=== PATIENT | female | born 1955 | race Caucasian/White ===

== ENCOUNTER 2022-10-12 08:10 | Outpatient (CLI) | payer MEDICARE, SELFPAY | END 2022-10-12 08:11 | disposition home or self-care (01) | LOC: NFLDREF 10-16 09:53 | PROVIDERS: PCP Internal Medicine; Referring Provider Internal Medicine; Visit Provider Internal Medicine | DX: E78.5 Hyperlipidemia, unspecified (principal); M85.80 Other specified disorders of bone density and structure, unspecified site | CPT/HCPCS: 80061; 82306 ==

== ENCOUNTER 2022-12-07 14:46 | Outpatient (CLI) | payer MEDICARE, SELFPAY ==
--- NOTE | 2022-12-07 15:00 | CRLHL7_ITS ---
For Patients: As a result of the Century Cures Act, medical imaging exams and procedure reports are released immediately into your electronic medical record. You may view this report before your referring provider. If you have questions, please contact your health care provider. BILATERAL SCREENING MAMMOGRAM WITH COMPUTER-AIDED DETECTION AND TOMOSYNTHESIS TECHNIQUE: CC and MLO views were obtained. These mammographic images have been obtained using full-field digital technique. These mammographic images were interpreted with the benefit of computer-aided detection. Breast tomosynthesis was used in this interpretation. COMPARISON FILM: 11/17/21, 03/19/20, 11/11/18. FINDINGS: There are scattered areas of fibroglandular density. IMPRESSION: There is no radiographic evidence for malignancy. ASSESSMENT: BI-RADS Category 1: Negative RECOMMENDATION: Routine screening mammogram in 1 year. A lay language report of this examination will be provided to the patient. DENTON TERESA M.D. Diagnostic Radiologist [email or web address] Transcribed: 3:[address]/Dictated by: Denton Teresa MD @ 12/08/2022 11:37:00 AM (Electronically Signed)
== END 2022-12-07 14:47 | disposition home or self-care (01) ==
LOC: MAMMO 14:46
PROVIDERS: PCP Internal Medicine; Visit Provider Internal Medicine
DX: Z12.31 Encounter for screening mammogram for malignant neoplasm of breast (principal)
CPT/HCPCS: 77063; 77067

== ENCOUNTER 2023-06-22 13:19 | Outpatient (CLI) | payer MEDICARE, SELFPAY ==
--- OUTSIDE RECORDS SUMMARY | 2023-06-25 08:18 | XMS_ITS | Patient Health Record ---
Author Name Unknown Organization [facility] Address [address] [place], [place] [id number] Care Team Providers Care Gravity Prospecting Supervisor Name Role Phone Katerina Camacho Primary Care Provider ALLERGIES Allergen (clinical drug ingredient) Drug/Non Drug Allergy documented on EMR Reaction Allergy Type Onset Date Status Penicillin G Benzathine Unknown Drug Allergy Active sulfacetamide Sulfacetamide Sodium Unknown Drug Allergy Active REASON FOR REFERRAL No Information MEDICATIONS Medication SIG (Take, Route, Frequency, Duration) Notes Start Date End Date Status Calcium Active Vitamin D 4000 iu Active Multivitamin Active Calcium & Magnesium Carbonates Active Aspirin 81mg Active SOCIAL HISTORY Tobacco Use: Social History Observation Description Date Details (start date - stop date) Never Smoker NA - NA Sex Assigned At : Social History Observation Description Sex Assigned At Unknown Tobacco Use/Smoking Question Answer Notes Are you a nonsmoker Alcohol Screen (Audit-C) Question Answer Notes Did you have a drink contain ing alcohol in the past year? Yes How often did you have a dri nk containing alcohol in the past year? 4 or more times a week (4 points) Points 4 Interpretation Positive Sexual History Question Answer Notes Have you ever had a Sexually transmitted disease ? No PLAN OF TREATMENT No Information Insurance Providers Payer Name Payer Address Payer Phone Subscriber Number Group Number Insured Name Patient Relationship to Insured Coverage Start Date Coverage End Date [facility] Medicare 2021 (Ins. Bill) [address] [place], [place] [id number] Self - patient is the insured Medicare (Ins. Bill) [address] [place], [place] [id number] JANY KALE Self - patient is the insured MEDICAL (GENERAL) HISTORY Medical History History ICD Code Endometrosis Chicken Pox High Cholestrol Arthritis Surgical History Surgery Date(Month/Year) Bunionectomy 2012 Laparoscopy for Endometriosis 1988
== END 2023-06-22 13:20 | disposition home or self-care (01) ==
LOC: NFLDREF 06-25 08:16
PROVIDERS: PCP Internal Medicine; Referring Provider Internal Medicine; Visit Provider Physician Assistant
DX: R30.0 Dysuria (principal); N39.0 Urinary tract infection, site not specified
CPT/HCPCS: 87086

== ENCOUNTER 2023-10-13 08:26 | Outpatient (CLI) | payer MEDICARE, SELFPAY | END 2023-10-13 08:27 | disposition home or self-care (01) | LOC: NFLDREF 10-26 20:54 | PROVIDERS: PCP Internal Medicine; Referring Provider Internal Medicine; Visit Provider Internal Medicine | DX: M81.0 Age-related osteoporosis without current pathological fracture (principal); E78.5 Hyperlipidemia, unspecified | CPT/HCPCS: 80061; 82306 ==

== ENCOUNTER 2023-11-18 13:50 | Outpatient (CLI) | payer MEDICARE, SELFPAY ==
--- OUTSIDE RECORDS SUMMARY | 2023-11-18 13:52 | XMS_ITS | Clinical Summary ---
Author Name Unknown Organization [facility] Address [place], [place] [address] Care Team Providers Care Infectious Diseases Physician Name Role Phone Pcp, No Primary Care Provider Unavailabl e Allergies Active Allergy Reactions Criticality Noted Date Comments Penicillins Rash Low 05/28/2020 Sulfa (Sulfonamide Antibiotics) Rash Low 05/10 Medications Medication Sig Dispensed Refills Start Date End Date Status calcium carbonate (CALTRATE) 600 mg calcium (1,500 mg) tablet Take 1 Tablet (600 mg) by mouth 2 times daily with meals. 180 Tablet 3 11/04/2020 Active cholecalciferol (Vitamin D-3) 2,000 unit capsule Take 1 Capsule (2,000 units) by mouth once daily. 0 11/04/2020 Active multivitamin (MVI) tablet Take by mouth. Active simvastatin (ZOCOR) 20 mg tablet Take 20 mg by mouth once daily. 12/18/2021 Active aspirin (ECOTRIN) 81 mg enteric coated tablet Take 81 mg by mouth once daily. Active Active Problems Problem Noted Date Diagnosed Date Osteopenia of multiple sites 11/04/2020 Elevated BP without diagnosis of hypertension Immunizations Name Administration Dates Next Due COVID-19 vaccine (Innovacene 30mcg/0.3mL) P F, MDV 10/15/2020 Influenza Virus, Unspecified 06/16/2017,05/18/20 16 Influenza, High-dose Quadrivalent Inactivated ,09/25/2021 Influenza, IIV4 05/28/2020,06/15/2019 Influenza, Injectable, Mdck, Quadrivalent, W/preservative 06/16/2017 Influenza,CCIIV4 PRESERV FREE 05/22/2018 Pneumococcal Poly,23-Valent (Pneumovax) 05/28/20 20 Pneumococcal conj 13-Valent (Prevnar 13) 016 Td (Age >=7 Years) 09/25/2021,08/16/2006 Tdap 08/15/2012 Zoster (Shingrix-RZV, recombinant) 01/21/2021, Zoster (Zostavax-ZVL, live) 09/12/2014 Family History Medical History Relation Name Comments Rheum arthritis Father Diabetes Maternal Grandfather Heart attack Maternal Grandfather Cancer-breast Mother precancerous n odule Diabetes Mother Diverticulitis Mother Hypertension Mother Cervical cancer Sister Relation Name Status Comments Father Maternal Grandfather Mother Sister Social History Tobacco Use Types Packs/Day Years Used Date Smoking Tobacco: Never Smokeless Tobacco: Never Tobacco Cessation:Counseling Given: Yes Alcohol Use Standard Drinks/Week Comments Yes 0 (1 standard drink = 0.6 oz pur e alcohol) PHQ-2 Answer Date Recorded PHQ-2 TOTAL SCORE 0 11/04/2020 Social Connections Answer Date Recorded Frequency of Communication with Friends and Fami ly Not on file 08/11/2023 Financial Resource Strain Answer Date R ecorded Difficulty of Paying Living Expenses 3 01/20/2022 Difficulty of Paying Living Expenses Not on file 01/20/2022 Food Insecurity Answer Date Recorded Worried About Running Out of Food in the Last Ye ar 1 01/20/2022 Transportation Needs Answer Date Record ed Lack of Transportation (Medical) 1 01/20/2022 Housing Stability Answer Date Recorded Unable to Pay for Housing in the Last Year 1 01/20/2022 Sex and Gender Information Value Date Recorded Sex Assigned at Not on file Gender Identity Not on file Sexual Orientation Not on file Obstetrics History Last Filed Vital Signs Vital Sign Reading Time Taken Comments Blood Pressure 138/81 01/20/2022 12:24 PM CDT Pulse 77 01/20/2022 12:24 PM CDT Temperature 37.2 ??C (98.9 ??F) 01/20/2022 1 2:24 PM CDT Respiratory Rate 16 01/20/2022 12:2 4 PM CDT Oxygen Saturation 97% 01/20/2022 12: 24 PM CDT Inhaled Oxygen Concentration - - Weight 61.6 kg (135 lb 11.2 oz) 022 12:24 PM CDT Height 159.5 cm (5' 2.8) 11/04/2020 9:49 AM CDT Body Mass Index 24.2 11/04/2020 9:49 AM CDT Plan of Treatment Health Maintenance Due Date Last Done Comments Hepatitis C screening for ag e 18-79 12/01/1971 Lipids for age 45-75 1998 Mammogram for age 45-75 03/18/2021 03/18/2020 BMI (ht and wt on same day) for age 18+ 11/04/2021 11/04/2020 Depression screening for age 12+ 11/04/2021 11/05/19 21 Medicare Wellness for age 65+ 11/05/2021 11/04/2020 COVID-19 vaccine series ( season) 2023 08/18/2021, 11/05/2020, 10/15/2020 Influenza for age 65+ 04/09/2024 06/16/2022 , 09/25/2021, 05/28/2020, Additional history exists Colonoscopy through age 75 02/12/203102/12, 02/12/2021, 02/12/2021 Tetanus booster 09/25/2031 09/25/2021, 02/2013, 08/16/2006 Tdap Completed 08/15/2012 DEXA/DXA scan for age 65+ Completed 03/19/2020 Pneumococcal series for age 65+ Completed , 04/22/2016 Zoster (shingles) series for age 50+ Completed 01/21/2021, 10/01/2020, 09/12/2014 Procedures Procedure Name Priority Date/Time Associated Diagnosis Comments COLONOSCOPY SCREENING Routine 02/12/2021 9:18 AM CDT Screening for colon cancer SCAN-BONE DENSITOMETRY DEXA 03/19/2020 12:00 AM CDT SCAN-MAMMOGRAPHY REPORT 03/18/2020 12:00 AM CDT from Last 3 Months or Most Recently Relevant to Health Maintenance Results * COLONOSCOPY (02/12/2021 9:10 AM CDT) 02/12/2021 9:10 AM CDT Narrative Transcriptions Tuan Martinez MD - 02/12/2021 10:24 AM CDT Patient Name: Jeannette Loyd Procedure Date: 02/12/2021 Gender: Female Date of : 1955 Admit Type: Outpatient Procedure: Colonoscopy Proceduralist: Tuan Martinez MD , Lisseth Balderas (Nurse) Referring MD: Paulette August Indications/Pre-Op Diagnosis: Screening for colorectal malignant neoplasm, Last colonoscopy: August 2010 Medications: Fentanyl 100 micrograms IV, Midazolam 4 mgIV, The level of sedation administered wasmoderate Procedure Description: The patient had risks, benefits and alternatives explained to andgave informed consent. The patient had a stable cardiopulmonary status and judged an adequate candidate for conscious sedation. The PCF-Q290AL [id number] was passed through the anus and advanced tothe cecum, identified by appendiceal orifice and ileocecal valve. The colonoscopy was performed without difficulty. The patient toleratedthe procedure well. The quality of the bowel preparation was good. The ileocecal valve, appendiceal orifice, and rectum were photographed. Complications: No immediate complications. Estimated Blood Loss & Specimen: Estimated blood loss: none. Specimen collected - Yes and sent to Laboratory Findings: The perianal and digital rectal examinations were normal. Multiple small and large-mouthed diverticula were found in thesigmoid colon and descending colon. There was narrowing of the colon in association with the diverticular opening. Scattered small and large-mouthed diverticula were found in the ascending colon. The exam was otherwise without abnormality on direct and retroflexion views. Impressions/Post-Op Diagnosis: - Moderate diverticulosis in the sigmoid colon and in the descending colon. There was narrowing of the colon in association with the diverticular opening. - Diverticulosis in the ascending colon. - The examination was otherwise normal on direct and retroflexionviews. - No specimens collected. Recommendation: - Patient has a contact number available for emergencies. The signsand symptoms of potential delayed complications were discussed with the patient. Return to normal activities tomorrow. Written discharge instructions were provided to the patient. - Resume previous diet. - Continue present medications. - Repeat colonoscopy in 10 years for screening purposes. Moderate Sedation: Moderate (conscious) sedation was administered by the endoscopy nurse and supervised by the endoscopist. The following parameters were monitored: oxygen saturation, heart rate, respiratory rate, blood pressure, adequacy of pulmonary ventilation and reponse to care. Please refer to the patient's medical record flowsheets and nursing notes for moderate sedation details. Total physician intraservice time was 20 minutes. Tuan Martinez MD 02/12/2021 10:24:44 AM This report has been signed electronically. Note Initiated On: 02/12/2021 9:10 AM Procedure Code(s): --- Professional --- 23299, Colonoscopy, flexible; diagnostic, including collection of specimen(s) bybrushing or washing, when performed (separateprocedure) Diagnosis Code(s): --- Professional --- Z12.11, Encounter for screening formalignant neoplasm of colon K57.30, Diverticulosis of large intestine without perforation or abscess withoutbleeding CPT copyright 2020 [employer]. All rights reserved. The codes documented in this report are preliminary and upon broker assistant reviewmay be revised to meet current compliance requirements. Scope In: 10:02:11 AM Scope Withdrawal Time 0 hours 7 minutes 45 seconds Scope Out: 10:19:58 AM Tuan Martinez MD PROCEDURE ORD * SCAN-BONE DENSITOMETRY DEXA (03/19/2020 12:00 AM CDT) Anatomical Region Laterality Modality Other Scanner OTHER * SCAN-MAMMOGRAPHY REPORT (03/18/2020 12:00 AM CDT) Anatomical Region Laterality Modality Other Scanner OTHER from Last 3 Months or Most Recently Relevant to Health Maintenance Care Teams Infectious Diseases Physician Relationship Specialty Start Date End Date Pcp, No . PCP - General 02/16/23
== END 2023-11-18 13:51 | disposition home or self-care (01) ==
PROVIDERS: PCP Internal Medicine; Visit Provider Nurse Practitioner Family
DX: R35.0 Frequency of micturition (principal); R53.83 Other fatigue
CPT/HCPCS: 80053; 83735; 84443; 87086

== ENCOUNTER 2023-12-22 08:54 | Outpatient (CLI) | payer MEDICARE, SELFPAY ==
--- OUTSIDE RECORDS SUMMARY | 2023-12-22 08:56 | XMS_ITS | Clinical Summary ---
Author Name Unknown Organization [facility] Address [place], [place] [address] Care Team Providers Care Window Shade Cloth Sewer Name Role Phone Pcp, No Primary Care [...] Name Administration Dates Next Due COVID-19 vaccine (BlueTalon 30mcg/0.3mL) P F, MDV 10/15/2020 Influenza Virus, [...] Admit Type: Outpatient Procedure: Colonoscopy Proceduralist: Tuan aMrtinez MD , Lisseth Balderas (Nurse) Referring MD: [...] adequate candidate for conscious sedation. The PCF-Q290AL [id number] was passed through the anus and advanced [...] 9:10 AM Procedure Code(s): --- Professional --- 93366, Colonoscopy, flexible; diagnostic, including collection of specimen(s) bybrushing or washing, when performed (separateprocedure) Diagnosis Code(s): --- Professional --- Z12.11, Encounter for screening formalignant neoplasm of colon K57.30, Diverticulosis of large intestine without perforation or abscess withoutbleeding CPT copyright 2020 [employer]. All rights reserved. The codes documented in this report are preliminary and upon security operations specialist reviewmay be revised to meet current compliance [...] Recently Relevant to Health Maintenance Care Teams Window Shade Cloth Sewer Relationship Specialty Start Date End Date Pcp, No . PCP - General 02/16/23
--- NOTE | 2023-12-22 09:15 | MM_ITS ---
Patient: KALE CARMICHAEL Facility:?[facility] Patient ID:?[id number] Site Patient ID:?[id number] Site :?1955 Study:?XRay-Breast Bilateral 3D W/CAD-12/22/2023 9:25:33 AM Ordering Physician:Sheri Besaley Final Report: BILATERAL SCREENING MAMMOGRAM WITH COMPUTER-AIDED DETECTION AND TOMOSYNTHESIS TECHNIQUE: CC and MLO views were obtained. These mammographic images have been obtained using full-field digital technique. These mammographic images were interpreted with the benefit of computer-aided detection. Breast Tomosynthesis was used in this interpretation. COMPARISON FILM: 12/07/22, 11/17/21, 03/19/20. FINDINGS: There are scattered areas of fibroglandular density. IMPRESSION: There is no radiographic evidence for malignancy. ASSESSMENT: BI-RADS Category 1: Negative RECOMMENDATION: Routine screening mammogram in 1 year. A lay language report of this examination will be provided to the patient. Denton Rebolledo M.D. Diagnostic Radiologist [email or web address] DSM/sp D& Transcribed: 7:41 p.m. SP/Dictated by: Denton Rebolledo MD @ 12/22/2023 10:58:00 AM Signed by:?Denton Rebolledo MD @12/22/2023 7:46:00 PM (Electronic Signature)
== END 2023-12-22 08:55 | disposition home or self-care (01) ==
LOC: MAMMO 08:55
PROVIDERS: PCP Internal Medicine; Visit Provider Internal Medicine
DX: Z12.31 Encounter for screening mammogram for malignant neoplasm of breast (principal)
CPT/HCPCS: 77063; 77067

== ENCOUNTER 2023-12-22 13:11 | Outpatient (CLI) | payer MEDICARE, SELFPAY ==
--- OUTSIDE RECORDS SUMMARY | 2023-12-22 13:16 | XMS_ITS | Clinical Summary ---
Author Name Unknown Organization [facility] Address [place], [place] [address] Care Team Providers Care Hydropulper Name Role Phone Pcp, No Primary Care [...] Name Administration Dates Next Due COVID-19 vaccine (Global Grind 30mcg/0.3mL) P F, MDV 10/15/2020 Influenza Virus, [...] adequate candidate for conscious sedation. The PCF-Q290AL [id number] was passed through the anus and advanced [...] 9:10 AM Procedure Code(s): --- Professional --- 81455, Colonoscopy, flexible; diagnostic, including collection of specimen(s) bybrushing or washing, when performed (separateprocedure) Diagnosis Code(s): --- Professional --- Z12.11, Encounter for screening formalignant neoplasm of colon K57.30, Diverticulosis of large intestine without perforation or abscess withoutbleeding CPT copyright 2020 [employer]. All rights reserved. The codes documented in this report are preliminary and upon lead java software engineer reviewmay be revised to meet current compliance [...] Recently Relevant to Health Maintenance Care Teams Hydropulper Relationship Specialty Start Date End Date Pcp, No . PCP - General 02/16/23
--- OUTSIDE RECORDS SUMMARY | 2023-12-22 13:16 | XMS_ITS | Continuity of Care Document ---
Author Name Unknown Organization [facility] Address [address] [address] [place] [address] Phone Care Team Providers Care Pad Tufter Name Role Phone Unavailable Unavailable Unavailable Advance Directives Directive Yes / No Effective Date File Name No Information Encounters Encounter Description Practice Location Reason(s) For Visit Diagnoses Date Provider Providers Copied on Encounter [facility], [address] [address], [place], [place], [id number], [place] tel:[phone] [facility] No Information Oct-2 4-200 6 No Information Family History Family Member Type Diagnosis Age At Onset No Information Payers Payer name Insurance type Covered constitution party ID Authoriza tion(s) No Information Social History Type Description Quantity Date Captured Comments Sex Female Smoking Status No Information Chief Complaint And Reason For Visit No Information Reason For Referral Reason For Referral No Information History Of Present Illness Encounter Date Complaint History Of Prese nt Illness No Information Functional Status Date Functional Assessmen t No Information Instructions Date Instruction Additional Infor mation No Information Assessments Type Assessment Date No Information Patient Care Teams Name Effective Dates (start - stop) Status Members No Information
--- NOTE | 2023-12-22 13:30 | XR_ITS ---
Patient: KALE CARMICHAEL Facility:?[facility] Patient ID:?[id number] Site Patient ID:?[id number]. Site :?1955 Study:?DEXA-Bone Density -12/22/2023 1:47:38 PM Ordering Physician:RACHANA Final Report: DXA BONE MINERAL DENSITY STUDY Reason for exam: Osteopenia. Current height (in): 63. Weight (lb): 135. Menopause age: 49. Ethnicity: White. 1. Have you had a previous hip or vertebral fracture? No. 2. Have you had any fractures during your adult life which did not result from significant trauma (e.g., auto accident)? No. 3. Did either of your parents have a hip fracture? No. 4. Do you smoke? No. 5. Have you ever taken Glucocorticoids? No. 6. Do you have rheumatoid arthritis? No. 7. Do you have secondary osteoporosis? No. 8. Do you drink 3 or more alcoholic drinks per day? No. 9. Are you being treated for osteoporosis? No. 10. Have you ever taken any of the following medications: Actonel, Evista, Fosamax, Miacalcin, Reclast, Boniva, Forteo, HRT (i.e., estrogen/hormone therapy), Protelos, Prolia, Vitamin D, Calcium, other ? please specify. ANSWER: Yes, vitamin D and calcium. 11. Do you have any of the following medical conditions: Anorexia or bulimia, asthma or emphysema, end stage renal disease, hyperparathyroidism, any seizure disorders, cancer, inflammatory bowel diseases, hysterectomy, other ? please specify. ANSWER: No. 12. What was your maximum height (inches)? 63. 13. Do you perform weight bearing exercise regularly? Yes. 14. Do you regularly consume dairy products? No. 15. Do you drink caffeinated beverages? Yes. 16. At what age did your period start? 10. 17. Are you premenopausal? No. 18. How many full-term pregnancies have you had? 2. 19. Have you ever missed your period for more than 6 months in a row (not including or menopause)? No. TECHNIQUE: Bone mineral density study was performed using the [employer]up[employer]. FINDINGS: The results of the study expressed as bone mineral density (BMD) are as follows: Lumbar spine L1 to L4: BMD: 1.031 g/cm2. T-score: -0.1. Z-score: 2.0 Neck Left: BMD: 0.689 g/cm2. T-score: -1.4. Z-score: 0.4 Right: BMD: 0.754 g/cm2. T-score: -0.9. Z-score: 0.9 Total Left: BMD: 0.923 g/cm2. T-score: -0.2. Z-score: 1.3 Right: BMD: 0.937 g/cm2. T-score: 0.0. Z-score: 1.5 IMPRESSION: Osteopenia. FRAX 10-year Fracture Risk Major Osteoporotic Fracture: 9.5% Hip Fracture: 1.3% Reported Risk Factors: [place] () Neck BMD=0.689, BMI=23.923.9 Denton Rebolledo M.D. Diagnostic Radiologist [email or web address] JAN/[email or web address] D& Transcribed: 2:36 p.mTosha nolen/Dictated by: Denton Rebolledo MD @ 12/23/2023 11:11:00 AM Signed by:?Denton Rebolledo MD @12/23/2023 3:10:58 PM (Electronic Signature)
== END 2023-12-22 13:12 | disposition home or self-care (01) ==
LOC: RAD 13:13
PROVIDERS: PCP Internal Medicine; Visit Provider Internal Medicine
DX: M85.88 Other specified disorders of bone density and structure, other site (principal); M85.89 Other specified disorders of bone density and structure, multiple sites
CPT/HCPCS: 77080